=== PATIENT | male | born 1955 | race African-American/Black ===

== ENCOUNTER 2016-10-28 15:38 | Emergency (ER) | payer OTHER ==
[~2016-10-28] VITALS: Ht 188 cm; Wt 104.3 kg
[2016-10-28 17:52] LABS: HEMATOCRIT 48.5 % (38.0-50.0); MCH 31.5 PG (29.0-34.0); MCHC 34.6 G/DL (30.0-36.0); MCV 90.8 FL (86-99); MEAN PLAT.VOLUME 9.4 uM^3 (9.0-12.4); PLATELET COUNT 215 K/uL (156-360); RBC DIS.WIDTH-CV 13.1 % (11.8-14.6); RBC DIS.WIDTH-SD 42.8 % (39-53); RED BLOOD COUNT 5.34 M/uL (4.00-5.50); WHITE BLOOD COUNT 6.7 K/uL (4.1-10.2)
[2016-10-28 18:01] LABS: CHLORIDE 105 mEq/L (99-109); POTASSIUM 3.6 mEq/L (3.7-5.4); SODIUM 143 mEq/L (136-147)
[2016-10-28 18:02] LABS: GLUCOSE 107 mg/dL (70-99)
[2016-10-28 18:04] LABS: ANION GAP 12 MEQ/L (2-14)
[2016-10-28 18:06] LABS: GFR ESTIMATE (CALCULATED) > 59 mL/min/
[2016-10-28 18:07] LABS: UREA NITROGEN (BUN) 14 mg/dL (9-23)
[2016-10-28 18:13] LABS: TROP-I INTERPRETATION NEGATIVE; TROPONIN-I 0.02 ng/mL (0.0-0.30)
[2016-10-28 21:18] VITALS: BP 200/128
== END 2016-10-28 21:20 | disposition short-term general hospital (02) ==
LOC: EME 15:38
PROVIDERS: Emergency Medicine
DX: I16.1 Hypertensive emergency (principal); R07.9 Chest pain, unspecified; Z87.891 Personal history of nicotine dependence; E11.9 Type 2 diabetes mellitus without complications; E78.5 Hyperlipidemia, unspecified; B18.2 Chronic viral hepatitis C; J44.9 Chronic obstructive pulmonary disease, unspecified
CPT/HCPCS: 71020; 80048; 84484; 85027; 93005; 93971; 99281; 99285